=== PATIENT | female | born 1970 | race Caucasian/White ===

== ENCOUNTER → 2019-12-01 10:55 | Outpatient (BNVA) | payer OTHER, SELFPAY | PROVIDERS: Family Provider Nurse Practitioner; PCP Family Medicine; Visit Provider Emergency Medicine | DX: Z11.59 Encounter for screening for other viral diseases (principal); R68.89 Other general symptoms and signs; J02.9 Acute pharyngitis, unspecified | CPT/HCPCS: 87635 ==